=== PATIENT | female | born 1965 | race Two or more races ===

== ENCOUNTER → 2020-01-25 | Outpatient (CLI) | payer OTHER ==
--- NOTE | 2020-01-25 13:31 | KCIC ---
Study: MRI right ankle without contrast INDICATION: Right ankle pain. Difficulty bearing weight. No known injury. COMPARISON: None. TECHNIQUE: Multiplanar MR imaging of the right ankle performed without the use of intravenous or intra-articular contrast. FINDINGS: Bones/cartilage: Tibial plafond more so than talar dome subchondral marrow edema greatest medially. This is occurring in the setting of high-grade and likely full-thickness chondral loss most notably at the anteromedial portion of the ankle joint. Osseous cyst formation within the calcaneus subjacent to the calcaneal angle. Only mild subtalar joint arthrosis. Degenerative cystic change at the talar side of the talonavicular joint. Degenerative or posttraumatic spurring at the medial more so than lateral malleoli. Mild edema and cystic change at the talar side of the distal syndesmosis. Spurring with edema at the anterior tibial plafond and. Cornuate configuration of the navicular. Ligaments: Constellation of findings suggestive of prior injury to the distal syndesmotic ligaments. Previously injured ATFL which is not well delineated. Attenuated but intact CFL. The PTFL is intact. Loss of the normal striated pattern of the deep deltoid ligament in keeping with prior injury or degeneration. The spring ligament is attenuated with surrounding fluid signal as it extends along the undersurface of the talar head. No evidence for Lisfranc ligament injury. Musculotendinous: Intact peroneal and flexor tendons. Unremarkable extensor tendons. Within normal limits Achilles. Sinus Tarsi: Maintained fatty signal. Tarsal tunnel: No space-occupying mass or accessory muscle. Plantar fascia: Within normal limits. Miscellaneous: Small amount of fluid signal within the syndesmotic recess but the interosseous ligaments above this fluid are intact. Talonavicular joint effusion. Either a ganglion cyst emanating from the sinus tarsi or extension of the talonavicular joint fluid through the sinus tarsi lateral opening. Soft tissue edema at the anterolateral ankle and mild synovitis in this region such as on images 9 and 12 series 5. IMPRESSION: 1. 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 2. Edematous spurring at the anterior tibial plafond. Spurring of both the medial and lateral malleoli and the sequela of prior ATFL injury. There is soft tissue edema surrounding the anterolateral joint space as well as mild anterolateral ankle joint synovitis. The collective findings can be seen with anterior/anterolateral ankle impingement however this is a clinical diagnosis. 3. Thin and attenuated spring ligament as it traverses along the undersurface of the talar head. This could be artifactual due to surrounding joint fluid but partial ligamentous disruption is not fully excluded. As deemed necessary, weightbearing radiographs could be obtained to assess for hindfoot instability. 4. Additional chronic observations as above. Electronically signed by: NKECHI NIELSON MD (01/25/2020 1:28 PM) [id number]
== END | disposition home or self-care (01) ==
LOC: KCIC MRI 10:02
PROVIDERS: ATTEND Nurse Practitioner Family
DX: M19.071 Primary osteoarthritis, right ankle and foot (principal); R60.0 Localized edema; M85.671 Other cyst of bone, right ankle and foot; M65.871 Other synovitis and tenosynovitis, right ankle and foot
CPT/HCPCS: 73721